=== PATIENT | female | born 1970 | race American Indian/Alaskan Native ===

== ENCOUNTER 2017-05-14 00:34 | Emergency (ER) | payer MEDICAID ==
[2017-05-14 01:06] VITALS: BMI 23.3
[2017-05-14 01:15] VITALS: BP 148/88; PULSE 84; RESP 18; TEMP 98.1; O2SAT 98
[2017-05-14 01:33] LABS: URINE BILIRUBIN NEGATIVE (NEGATIVE); URINE BLOOD SMALL (NEGATIVE); URINE GLUCOSE (UA) NEGATIVE (NEGATIVE); URINE KETONE NEGATIVE (NEGATIVE); URINE LEUKOCYTE ESTERASE NEGATIVE Leu/uL (NEGATIVE); URINE PROTEIN NEGATIVE mg/dL (<30 mg/dL); URINE UROBILINOGEN 0.2 E.U./dL (<1 E.U./dL)
[2017-05-14 01:34] LABS: URINE APPEARANCE CLEAR (CLEAR)
--- NOTE | 2017-05-14 01:45 | ED PDOC ---
Arrival/HPI - General Historian: Patient - History of Present Illness Time/Duration: < week Symptom Onset: Gradual Symptom Course: Unchanged Quality: Tightness Severity Level: 8 Activities at Onset: Rest Context: Sitting <Alphonso Wu - Last Filed: 05/14/17 04:16> <Peter Moore - Last Filed: 05/17/17 10:05> - General Chief Complaint: Abdominal Pain Time Seen by Provider: 05/14/17 00:37 - History of Present Illness Narrative History of Present Illness (Text): 05/14/17 01:39 This is a 46 yr. old female with a pertinent past medical history of s/p Abdominoplasty who comes into [facility] complaining of umbilical pain for two days. The patient describes the pain as sharp and tight. The patient reports the pain radiating to the right lower quadrant and left lower quadrant. The patient reports taking Tylenol and Ibuprofen but denies it improving any of her symptoms. The patient does report some chills in conjunction with the umbilical pain. She denies any fever, nausea, vomiting, constipation, diarrhea, chest pain, shortness of breath, changes in urine frequency or any other complaints. (Alphonso Wu) Past Medical History - Provider Review Nursing Documentation Reviewed: Yes - Hematological/Oncological Hx Anemia: Yes - Psychiatric Hx Substance Use: No <Alphonso Wu - Last Filed: 05/14/17 04:16> Family/Social History - Physician Review Nursing Documentation Reviewed: Yes Family/Social History: No Known Family HX Smoking Status: no Hx Alcohol Use: No Hx Substance Use: No <Alphonso Wu - Last Filed: 05/14/17 04:16> Allergies/Home Meds <Alphonso Wu - Last Filed: 05/14/17 04:16> <Peter Moore - Last Filed: 05/17/17 10:05> Allergies/Adverse Reactions: Allergies No Known Allergies Allergy (Verified 05/14/17 01:06) Home Medications: Home Meds Medication Instructions Recorded Confirmed Unobtainable 05/14/17 05/14/17 Review of Systems - Physician Review All systems were reviewed & negative as marked: Yes - Review of Systems Constitutional: Night Sweats. absent: Fevers Eyes: absent: Vision Changes, Eye Pain ENT: Normal. absent: Sore Throat, Rhinorrhea, Sinus Congestion Respiratory: Normal. absent: SOB, Cough, Wheezing Cardiovascular: Normal. absent: Chest Pain, Palpitations, Syncope Gastrointestinal: Abdominal Pain (umbilical pain that radiates to RLQ and LLQ). absent: Constipation, Diarrhea, Nausea, Vomiting, Hematochezia Genitourinary Female: absent: Frequency, Hematuria, Vaginal Discharge Musculoskeletal: Normal. absent: Back Pain Skin: Normal. absent: Laceration, Abscess Neurological: Normal. absent: Headache, Dizziness Endocrine: Normal. absent: Polyuria, Polydipsia Hemo/Lymphatic: absent: Easy Bleeding, Easy Bruising Psychiatric: Normal <Alphonso Wu - Last Filed: 05/14/17 04:16> Physical Exam Vital Signs Reviewed: Yes Temperature: Afebrile Blood Pressure: Normal Pulse: Regular Respiratory Rate: Normal Appearance: Positive for: Well-Appearing, Non-Toxic, Comfortable Pain Distress: None Mental Status: Positive for: Alert and Oriented X 3 - Systems Exam Head: Present: Atraumatic, Normocephalic Pupils: Present: PERRL. No: Non-Reactive Extroacular Muscles: Present: EOMI. No: Gaze Palsy Conjunctiva: Present: Normal. No: Injected Mouth: Present: Moist Mucous Membranes, Dry, Normal Tounge. No: Drooling Neck: Present: Normal Range of Motion. No: JVD, Lymphadenopathy Respiratory/Chest: Present: Clear to Auscultation, Good Air Exchange. No: Respiratory Distress, Accessory Muscle Use, Wheezes, Decreased Breath Sounds Cardiovascular: Present: Regular Rate and Rhythm, Normal S1, S2. No: Murmurs, Tachycardic, Bradycardic Abdomen: Present: Tenderness (tenderness noted upon palpation in RLQ and LLQ.), Normal Bowel Sounds. No: Peritoneal Signs, Rebound, Guarding Back: Present: Normal Inspection. No: CVA Tenderness, Paraspinal Tenderness Upper Extremity: Present: Normal Inspection. No: Cyanosis, Edema, Erythema Lower Extremity: Present: Normal Inspection. No: Edema Neurological: Present: CN II-XII Intact, Speech Normal Skin: Present: Dry, Normal Color. No: Warm, Rashes Lymphatic: No: Cervical Adenopathy Psychiatric: Present: Alert, Oriented x 3, Normal Insight, Normal Concentration <Alphonso Wu - Last Filed: 05/14/17 04:16> Medical Decision Making <Alphonso Wu - Last Filed: 05/14/17 04:16> <Peter Moore - Last Filed: 05/17/17 10:05> ED Course and Treatment: 05/14/17 01:49 This is a 46 yr. old female with a pertinent past medical history s/p Abdominoplasty who comes comes into [facility] complaining of umbilical pain that radiates the right lower quadrant and left lower quadrant. I ordered labs including: cbc w/dfif, cmp, u/a,poc, lipase, and abdominal and pelvic ct. The patient was given Toradol IVP for pain. The patient will be re- evaluated once lab results return. 05/14/17 02:10 Patient reports a remaining suture that was left from her Abdominoplasty in March 2017. Patient confirmed this with her doctor in [place]. Patient is willing to have the suture removed. Will examine suture further to determine if it's available to be taken out today. 05/14/17 03:03 CT results:no obstructive uropathy, normal appendix, post opchange wi/i subcutaneous tissues of lower abdomen and pelvis. 05/14/17 04:16 Patient agreed to allow me to remove suture from umbilicus. After attempting to remove the suture it was apparent that I was unable to determine the depth of suture in the abdominal cavity. I discussed with the patient that she would need to follow up with a surgeon who could give her a better idea of extent of the suture. Patient was given Dr. Mcmahon and Dr. Nelson contacts to follow up on the suture removal and a second opinion from a surgeon. (Alphonso Wu) Impression: Pt seen and evaluated with medical typist. Pt, whose past medical history includes abdominoplasty, presented for sharp umblical pain radiating to lower abdomen with associated chills. Aware and agree with HPI, clinical findings, plan, and management. Plan: -- CT Abdomen and Pelvis w/o contrast -- Labs, lipase -- Urinalysis, urine cultures -- Toradol -- Reassess and disposition (Peter Moore) - Lab Interpretations Microbiology Results: Microbiology Results 05/14/17 01:15 Urine,Clean Catch Urine Culture - Final No Growth (<1,000 CFU/ML) Lab Results: 05/14/17 01:40 05/14/17 01:40 Lab Results 05/14/17 01:40: Sodium 140, Potassium 3.6, Chloride 101, Carbon Dioxide 28, Anion Gap 15, BUN 15, Creatinine 0.9, Est GFR ( Amer) > 60, Est GFR (Non- Af Amer) > 60, Random Glucose 98, Calcium 9.5, Total Bilirubin 0.3, AST 35, ALT 34, Alkaline Phosphatase 71, Total Protein 7.6, Albumin 4.3, Globulin 3.3, Albumin/Globulin Ratio 1.3, Lipase 186 05/14/17 01:40: WBC 3.8 L, RBC 4.17, Hgb 11.5 L, Hct 35.2 L, MCV 84.4, MCH 27.6 , MCHC 32.7, RDW 14.0, Plt Count 252, MPV 9.9, Gran % 29.5 L, Lymph % (Auto) 58.5 H, Price % (Auto) 9.9 H, Eos % (Auto) 1.8, Baso % (Auto) 0.3, Gran # 1.13 L , Lymph # 2.2, Price # 0.4, Eos # 0.1, Baso # 0.01 05/14/17 01:15: Urine Color Straw, Urine Appearance Clear, Urine pH 6.0, Ur Specific [place] 1.010, Urine Protein Negative, Urine Glucose (UA) Negative, Urine Ketones Negative, Urine Blood Small H, Urine Nitrate Negative, Urine Bilirubin Negative, Urine Urobilinogen 0.2, Ur Leukocyte Esterase Negative, Urine RBC 2 - 5, Urine WBC 0 - 2, Ur Epithelial Cells 0 - 2, Urine Bacteria Small - RAD Interpretation Radiology Orders: 05/14/17 01:38 ABD & PELVIS W/O PO OR IV CONT [CT] Stat - Medication Orders Current Medication Orders: Discontinued Medications Ketorolac Tromethamine (Toradol) 30 mg IVP STAT STA Stop: 05/14/17 01:37 Last Admin: 05/14/17 01:52 Dose: 30 mg - 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 / has examined the patient and agrees with the treatment plan. <Peter Moore - Last Filed: 05/17/17 10:05> Disposition/Present on Arrival - Present on Arrival Any Indicators Present on Arrival: No History of DVT/PE: No History of Uncontrolled Diabetes: No Urinary Catheter: No History of Decub. Ulcer: No History Surgical Site Infection Following: None - Disposition Have Diagnosis and Disposition been Completed?: Yes Disposition Time: 04:27 Patient Plan: Discharge <JazminGordonn - Last Filed: 05/14/17 04:16> - Present on Arrival Any Indicators Present on Arrival: No - Disposition Have Diagnosis and Disposition been Completed?: Yes <Peter Moore - Last Filed: 05/17/17 10:05> - Disposition Diagnosis: Post-op pain Disposition: HOME/ ROUTINE Condition: GOOD Additional Instructions: Instructed patient to F/U with Dr. Mcmahon or Dr. Nelson for a second surgical opinion. Instructed patient to F/U with PMD within one week. Instructed patient to return to [facility] if any new symptoms arise or current symptoms worsen. Referrals: Cristobal Nelson MD [Medical Doctor] - Follow up with primary Mynor Warren II, MD [Staff Provider] - Follow up with primary Forms: [employer] (Syriac)
[2017-05-14 01:52] LABS: URINE BACTERIA SMALL (NEG); URINE COLOR STRAW (YELLOW); URINE EPITHELIAL CELLS 0 - 2 /hpf (0-5); URINE WBC 0 - 2 /hpf (0-6)
[2017-05-14 02:07] LABS: BASO # 0.01 K/mm3 (0.0-2.0); BASO % 0.3 % (0.0-3.0); EOS # 0.1 (0.0-0.7); EOS % 1.8 % (1.5-5.0); GRAN # 1.13 (1.4-6.5); GRAN % 29.5 % (50.0-68.0); HEMATOCRIT 35.2 % (36.0-48.0); LYMPH # 2.2 (1.2-3.4); LYMPH % 58.5 % (22.0-35.0); MEAN CELL VOLUME 84.4 fl (80.0-105.0); MEAN CORPUSCULAR HEMOGLOBIN 27.6 pg (25.0-35.0); MEAN CORPUSCULAR HGB CONC 32.7 g/dl (31.0-37.0); MEAN PLATELET VOLUME 9.9 fl (7.0-11.0); MONO # 0.4 (0.1-0.6); MONO % 9.9 % (1.0-6.0); WHITE BLOOD COUNT 3.8 10^3/ul (4.5-11.0)
[2017-05-14 02:11] LABS: ALB/GLOB RATIO 1.3 (1.1-1.8); ALKALINE PHOSPHATASE 71 U/L (38-133); ALT/SGPT 34 U/L (7-56); AST/SGOT 35 U/L (15-39); BILIRUBIN,TOTAL 0.3 mg/dL (0.2-1.3); BLOOD UREA NITROGEN 15 mg/dL (7-21); CALCIUM 9.5 mg/dL (8.4-10.5); CARBON DIOXIDE 28 mmol/L (21-33); CHLORIDE 101 mmol/L (95-110); GFR AFRICAN-AMERICAN > 60; GLUCOSE,RANDOM 98 mg/dL (70-110); LIPASE 186 U/L (23-300); POTASSIUM 3.6 mmol/L (3.6-5.0); SODIUM 140 mmol/L (132-148); TOTAL PROTEIN 7.6 g/dL (5.8-8.3)
--- NOTE | 2017-05-14 02:54 | CT ---
EXAM: CT Abdomen and Pelvis Without Intravenous Contrast CLINICAL HISTORY: 46 years old, female; Pain; Abdominal pain; Acute; Prior surgery; Surgery date: 1-6 months; Surgery type: Tummy tuck; Additional info: Rlq and llq pain TECHNIQUE: Axial computed tomography images of the abdomen and pelvis without intravenous contrast. All CT scans at this facility use one or more dose reduction techniques, viz.: automated exposure control; ma/kV adjustment per patient size (including targeted exams where dose is matched to indication; i.e. head); or iterative reconstruction technique. Coronal and sagittal reformatted images were created and reviewed. COMPARISON: No relevant prior studies available. FINDINGS: Lower thorax: The bilateral lung bases are clear. ABDOMEN: Liver: No acute findings Gallbladder and bile ducts: The gallbladder is decompressed, without calcified stones. No intra-extrahepatic biliary ductal dilation. Pancreas: Limited evaluation secondary to the lack of intravenous contrast. Spleen: No acute findings. Adrenals: No acute findings. Kidneys and ureters: No obstructing stones. No hydroureteronephrosis. PELVIS: Bladder: The bladder is moderately distended. Reproductive: No acute findings. Appendix: The appendix is of normal-caliber (series 2, image 5; series 601, image 60). ABDOMEN and PELVIS: Stomach and bowel: No acute findings. Peritoneum: No acute findings. Lymph nodes: Limited evaluation without intravenous contrast. Vasculature: No aortic aneurysm. Bones: No acute fracture. Findings within the subcutaneous soft tissues, induration and inflammation, consistent with patient's history of recent surgery. IMPRESSION: No obstructive uropathy. Normal appendix. Postoperative change within the subcutaneous soft tissues of the lower abdomen and pelvis.
== END 2017-05-14 04:49 | disposition home or self-care (01) ==
LOC: MERGE 00:34 → ED 00:34
DX: G89.18 Other acute postprocedural pain (principal)
CPT/HCPCS: 74176; 80053; 81001; 83690; 85025; 87086; 96374; 99283; J1885

== ENCOUNTER 2018-03-11 13:16 | Emergency (ER) | payer SELFPAY ==
[2018-03-11 13:35] VITALS: BMI 25.9
[2018-03-11 13:41] VITALS: RESP 18; TEMP 98.6; O2SAT 100
--- NOTE | 2018-03-11 14:35 | ED PDOC ---
Arrival/HPI - General Chief Complaint: Abnormal Skin Integrity Time Seen by Provider: 03/11/18 14:30 Historian: Patient - History of Present Illness Narrative History of Present Illness (Text): 03/11/18 14:31 Pt is a 47 yr old female who presents to the ED with a emerging old suture around the navel s/p tummy tuck procedure done last March in [place]. Pt states that she recently noticed something hard under the skin on the left side of the navel. After picking at it and breaking the skin, it became obvious that there was a blue suture in place, left by mistake. Pt states that she could not retrieve the suture and is here to have it removed. Denies abdominal pain, fever , sob, cp, n/v/d, discharge around the wound or any other complaints. 03/11/18 15:09 Time/Duration: 24 hours Symptom Onset: Sudden Symptom Course: Unchanged Quality: Unable to Describe Severity Level: 1 Context: Home Past Medical History - Provider Review Nursing Documentation Reviewed: Yes - Travel History Have you recently traveled outside [place] w/in the past 3 mons?: No - Infectious Disease Hx of Infectious Diseases: None - Hematological/Oncological Hx Anemia: Yes - Psychiatric Hx Substance Use: No - Surgical History Other/Comment: tummy tuck 11 months ago - Anesthesia Hx Anesthesia Reactions: No Hx Malignant Hyperthermia: No Family/Social History - Physician Review Nursing Documentation Reviewed: Yes Family/Social History: Unknown Family HX Smoking Status: Never Smoked Hx Alcohol Use: No Hx Substance Use: No Allergies/Home Meds Allergies/Adverse Reactions: Allergies No Known Allergies Allergy (Verified 05/14/17 01:06) Home Medications: Home Meds Medication Instructions Recorded Confirmed Unobtainable 05/14/17 05/14/17 Review of Systems - Review of Systems Constitutional: Normal Eyes: Normal ENT: Normal Respiratory: Normal Cardiovascular: Normal Gastrointestinal: Normal Genitourinary Female: Normal Musculoskeletal: Normal Skin: Normal, Skin Lesions (blue material emerging from left of naval) Neurological: Normal Endocrine: Normal Hemo/Lymphatic: Normal Psychiatric: Normal Physical Exam Vital Signs Reviewed: Yes Vital Signs Temp Pulse Resp BP Pulse Ox 03/11/18 15:41 98.6 F 75 18 110/60 100 03/11/18 13:17 98.6 F 71 18 105/69 100 Temperature: Afebrile Blood Pressure: Normal Pulse: Regular Respiratory Rate: Normal Appearance: Positive for: Well-Appearing, Non-Toxic, Comfortable Pain Distress: None Mental Status: Positive for: Alert and Oriented X 3 - Systems Exam Head: Present: Atraumatic, Normocephalic Pupils: Present: PERRL Extroacular Muscles: Present: EOMI Conjunctiva: Present: Normal Mouth: Present: Moist Mucous Membranes Neck: Present: Normal Range of Motion Respiratory/Chest: Present: Clear to Auscultation, Good Air Exchange. No: Respiratory Distress, Accessory Muscle Use Cardiovascular: Present: Regular Rate and Rhythm, Normal S1, S2. No: Murmurs Abdomen: No: Tenderness, Distention, Peritoneal Signs Back: Present: Normal Inspection Upper Extremity: Present: Normal Inspection. No: Cyanosis, Edema Lower Extremity: Present: Normal Inspection. No: Edema Neurological: Present: GCS=15, CN II-XII Intact, Speech Normal Skin: Present: Warm, Dry, Normal Color, Other (sml .25cm lesion on the left side of the navel with a blue-like thread visible). No: Rashes, Induration, Hot , Cold, Pale, Laceration Psychiatric: Present: Alert, Oriented x 3, Normal Insight, Normal Concentration Medical Decision Making ED Course and Treatment: 03/11/18 14:35 Impression Pt is a 47 yr old female who presents to the ED with a emerging old suture around the navel s/p tummy tuck procedure doen last March in [place]. Plan clean the area, probe the lesion to see if suture can be released. assess and dispo Progress Note 03/11/18 15:02 Wound was probed and suture knot was appreciated; tried to lift the material out of the wound but is firmly anchored; there is a significant amount of scar tissue around the navel and likely has affected the suture in the deeper dermal layers Advised pt to f/u with career development consultant or plastic surgeon for further care as the extent and depth of suture unknown Area cleaned and dressed with bacitracin and informed of wound care at home referral to plastic surgeon as requested by patient Dispo home VSS on dc Disposition/Present on Arrival - Present on Arrival Any Indicators Present on Arrival: Yes History of DVT/PE: No History of Uncontrolled Diabetes: No Urinary Catheter: No History of Decub. Ulcer: No History Surgical Site Infection Following: None - Disposition Have Diagnosis and Disposition been Completed?: Yes Diagnosis: Suture material present Disposition: HOME/ ROUTINE Disposition Time: 15:06 Patient Plan: Discharge Condition: GOOD Discharge Instructions (ExitCare): Wound Care (DC) Additional Instructions: CARMELO REA, thank you for letting us take care of you today. Your provider was ANDERSON Arauz and you were treated for a RESIDUAL SUTURE. The emergency medical care you received today was directed at your acute symptoms. If you were prescribed any medication, please fill it and take as directed. It may take several days for your symptoms to resolve. Return to the Emergency Department if your symptoms worsen, do not improve, or if you have any other problems. Please see a career development consultant or plastic surgeon in the next few days to have the navel assessed and treated Please contact your doctor or call one of the physicians/clinics you have been referred to that are listed on the Patient Visit Information form that is included in your discharge packet. Bring any paperwork you were given at discharge with you along with any medications you are taking to your follow up visit. Our treatment cannot replace ongoing medical care by a primary care provider outside of the emergency department. Thank you for allowing the [facility] team to be part of your care today. Referrals: Rakesh SARMIENTO,MD Yamel [Non-Staff] - Follow up with primary Forms: [employer] (Albanian)
[2018-03-11 15:50] VITALS: BP 110/60; PULSE 75
== END 2018-03-11 15:41 | disposition home or self-care (01) ==
LOC: ED 13:16
DX: L76.82 Other postprocedural complications of skin and subcutaneous tissue (principal); Y83.8 Other surgical procedures as the cause of abnormal reaction of the patient, or of later complication, without mention of misadventure at the time of the procedure